=== PATIENT | female | born 1970 | race Caucasian/White ===

== ENCOUNTER 2024-06-04 06:53 | Day surgery (SDC) | payer OTHER ==
[~2024-06-04] VITALS: Ht 170.2 cm; Wt 136.1 kg
[~2024-06-04 06:53] MED LIST: ALBU1NEB5 IN; FLUT1INH30 IN; ROSU10TA16 PO; SEMA1.7I SC; VALA1TAB PO
[2024-06-04] MEDS ORDERED: fentaNYL CITRATE 100 MCG/2 ML VL ONE (07:59)
[2024-06-04] MEDS ORDERED: PROPOFOL 10 MG/ML 20 ML IV ONE ×3 (07:59→08:56)
[2024-06-04] MEDS ORDERED: PHENYLEPHRINE HCL 10 MG/ML VL ONE (08:37)
[2024-06-04] MEDS ORDERED: ePHEDrine SULFATE 50 MG/ML AMP ONE (08:49)
[2024-06-04 08:58] VITALS: PULSE 85; RESP 16; TEMP 97.2; O2SAT 100
[2024-06-04 09:28] VITALS: BP 102/54; PULSE 76; RESP 12; O2SAT 100
== END 2024-06-04 09:40 | disposition home or self-care (01) ==
LOC: GI 06:53
PROVIDERS: ATTEND Internal Medicine Gastroenterology
DX: R19.5 Other fecal abnormalities (principal); D12.5 Benign neoplasm of sigmoid colon; K57.30 Diverticulosis of large intestine without perforation or abscess without bleeding; J45.909 Unspecified asthma, uncomplicated; E78.00 Pure hypercholesterolemia, unspecified; G47.30 Sleep apnea, unspecified; E66.9 Obesity, unspecified; Z68.42 Body mass index [BMI] 45.0-49.9, adult; Z79.899 Other long term (current) drug therapy; Z98.891 History of uterine scar from previous surgery; Z98.890 Other specified postprocedural states; Z88.1 Allergy status to other antibiotic agents
CPT/HCPCS: 45385; 88305; J2371; J2704; J3010